=== PATIENT | female | born 1995 | race Two or more races ===

== ENCOUNTER 2019-02-22 12:49 | Emergency (ER) | payer MEDICAID ==
[~2019-02-22] VITALS: Ht 157.5 cm; Wt 87.0 kg
[2019-02-22 12:56] VITALS: BP 116/75
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
[2019-02-22] MEDS ORDERED: FLUORESCEIN OPHTHALMIC 1 MG STRIP ONE (13:11)
[2019-02-22] MEDS ORDERED: FLUORESCEIN OPHTHALMIC 1 MG STRIP EACHEYE ONE (13:30)
== END 2019-02-22 13:39 | disposition home or self-care (01) ==
LOC: ED 13:30
DX: S05.02XA Injury of conjunctiva and corneal abrasion without foreign body, left eye, initial encounter (principal); X58.XXXA Exposure to other specified factors, initial encounter; Y93.89 Activity, other specified; Y92.89 Other specified places as the place of occurrence of the external cause; Y99.8 Other external cause status
CPT/HCPCS: 99283

== ENCOUNTER 2020-05-06 17:44 | Emergency (ER) | payer SELFPAY ==
[~2020-05-06] VITALS: Ht 154.9 cm; Wt 89.7 kg
[2020-05-06 17:49] VITALS: BP 140/86
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
--- NOTE | 2020-05-06 18:08 | NUR ---
PT TO RADIOLOGY VIA SILAS
--- NOTE | 2020-05-06 18:22 | NUR ---
REPORT TO GRAEME BALLESTEROS
[2020-05-06 18:57] LABS: BASOPHILS # (AUTO) 0.08 x10^3/uL (0-0.1); BASOPHILS % (AUTO) 1 % (0-1); EOSINOPHILS # (AUTO) 0.07 x10^3/uL (0-0.4); EOSINOPHILS % (AUTO) 1 % (1-7); LYMPHOCYTES # (AUTO) 1.96 x10^3/uL (1-3.4); LYMPHOCYTES % (AUTO) 18 % (22-44); MD NO; MEAN CORPUSCULAR HEMOGLOBIN 27.3 pg (27.0-34.8); MEAN CORPUSCULAR HGB CONC 32.6 g/dL (32.4-35.8); MEAN CORPUSCULAR VOLUME 83.8 fL (80-100); MEAN PLATELET VOLUME 7.2 fL (7.4-10.4); MONOCYTES # (AUTO) 0.66 x10^3/uL (0.2-0.8); MONOCYTES % (AUTO) 6 % (2-9); NEUTROPHILS # (AUTO) 8.17 x10^3/uL (1.8-6.8); NEUTROPHILS % (AUTO) 75 % (42-75); PLATELET COUNT 329 x10^3/uL (130-400); RED BLOOD COUNT 4.57 x10^6/uL (3.82-5.3); RED CELL DISTRIBUTION WIDTH 12.8 % (9.6-15.2)
[2020-05-06 19:08] LABS: ALBUMIN 3.4 g/dL (3.4-5.0); ANION GAP 5 mmol/L (5-15); CALCIUM 9.1 mg/dL (8.5-10.1); CHLORIDE 109 mmol/L (98-107)
[2020-05-06 19:27] LABS: ALANINE AMINOTRANSFERASE 25 U/L (12-78); ALKALINE PHOSPHATASE 72 U/L (45-117); BILIRUBIN,TOTAL 0.3 mg/dL (0.2-1.0); CREATININE 0.57 mg/dL (0.55-1.02); TOTAL PROTEIN 7.2 g/dL (6.4-8.2)
[2020-05-06 19:28] LABS: MICROSCOPIC NOT IND
== END 2020-05-06 19:51 | disposition home or self-care (01) ==
LOC: ED 19:35
DX: O20.0 Threatened abortion (principal); R10.9 Unspecified abdominal pain; Z88.0 Allergy status to penicillin; Z3A.01 Less than 8 weeks gestation of pregnancy
CPT/HCPCS: 36415; 76801; 80053; 81003; 84702; 85025; 86901; 99284

== ENCOUNTER 2020-05-29 19:47 | Emergency (ER) | payer MEDICAID ==
[~2020-05-29] VITALS: Ht 157.5 cm; Wt 90.4 kg
[2020-05-29 20:22] LABS: BASOPHILS % (AUTO) 1 % (0-1); EOSINOPHILS % (AUTO) 1 % (1-7); LYMPHOCYTES % (AUTO) 14 % (22-44); MEAN CORPUSCULAR HEMOGLOBIN 26.9 pg (27.0-34.8); MEAN CORPUSCULAR HGB CONC 33.2 g/dL (32.4-35.8); MEAN PLATELET VOLUME 7.3 fL (7.4-10.4); MONOCYTES % (AUTO) 7 % (2-9); NEUTROPHILS % (AUTO) 79 % (42-75); PLATELET COUNT 317 x10^3/uL (130-400); RED BLOOD COUNT 4.91 x10^6/uL (3.82-5.3); RED CELL DISTRIBUTION WIDTH 13.9 % (9.6-15.2)
[2020-05-29 20:25] LABS: MD NO
[2020-05-29 20:34] LABS: MICROSCOPIC INDICATED
[2020-05-29 20:35] LABS: ALBUMIN 3.4 g/dL (3.4-5.0); ANION GAP 6 mmol/L (5-15); CALCIUM 9.2 mg/dL (8.5-10.1); CHLORIDE 107 mmol/L (98-107); CREATININE 0.59 mg/dL (0.55-1.02)
--- NOTE | 2020-05-29 20:56 | NUR ---
CODE INSPECTOR: PT AMBULATORY TO ROOM WITH STEADY GAIT FROM LOBYOSSI AT THIS TIME, ACCOMPANIED BY VAMP MARKER
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
[2020-05-29 22:20] VITALS: BP 119/72
== END 2020-05-29 22:22 | disposition home or self-care (01) ==
LOC: ED 21:52
DX: O26.891 Other specified pregnancy related conditions, first trimester (principal); R10.2 Pelvic and perineal pain; R10.32 Left lower quadrant pain; Z3A.10 10 weeks gestation of pregnancy
CPT/HCPCS: 36415; 76801; 80048; 81001; 82040; 84702; 85025; 87086; 99284

== ENCOUNTER 2020-07-04 17:36 | Emergency (ER) | payer MEDICAID ==
[~2020-07-04] VITALS: Ht 160 cm; Wt 90.0 kg
[2020-07-04 17:44] VITALS: BP 125/80
[2020-07-04 18:21] LABS: BASOPHILS % (AUTO) 1 % (0-1); EOSINOPHILS % (AUTO) 1 % (1-7); LYMPHOCYTES % (AUTO) 15 % (22-44); MEAN CORPUSCULAR HGB CONC 33.7 g/dL (32.4-35.8); MEAN PLATELET VOLUME 7.4 fL (7.4-10.4); MONOCYTES % (AUTO) 8 % (2-9); NEUTROPHILS % (AUTO) 77 % (42-75); PLATELET COUNT 308 x10^3/uL (130-400); RED BLOOD COUNT 4.91 x10^6/uL (3.82-5.3); RED CELL DISTRIBUTION WIDTH 15.3 % (9.6-15.2)
[2020-07-04 18:22] LABS: ALANINE AMINOTRANSFERASE 19 U/L (12-78); ALBUMIN 3.3 g/dL (3.4-5.0); ANION GAP 6 mmol/L (5-15); CALCIUM 8.9 mg/dL (8.5-10.1); CHLORIDE 107 mmol/L (98-107); CREATININE 0.53 mg/dL (0.55-1.02)
[2020-07-04 18:26] LABS: MICROSCOPIC INDICATED
[2020-07-04 18:38] LABS: ALKALINE PHOSPHATASE 74 U/L (45-117); BILIRUBIN,TOTAL 0.3 mg/dL (0.2-1.0); TOTAL PROTEIN 7.7 g/dL (6.4-8.2)
[2020-07-04 19:46] LABS: MD NO
== END 2020-07-04 21:32 | disposition home or self-care (01) ==
LOC: ED 21:28
DX: O20.0 Threatened abortion (principal); Z3A.15 15 weeks gestation of pregnancy
CPT/HCPCS: 36415; 76815; 80053; 81001; 84702; 85025; 87086; 99284

== ENCOUNTER 2020-07-15 07:53 | Emergency (ER) | payer MEDICAID ==
[~2020-07-15] VITALS: Ht 157.5 cm; Wt 90.3 kg
--- NOTE | 2020-07-15 08:31 | NUR ---
PT IN ROOM, VSS, STATES 5/10 CHEAST PAIN, 16 WEEKS PREG.
[2020-07-15 08:52] LABS: BASOPHILS % (AUTO) 1 % (0-1); EOSINOPHILS % (AUTO) 0 % (1-7); LYMPHOCYTES % (AUTO) 10 % (22-44); MEAN CORPUSCULAR HEMOGLOBIN 28.5 pg (27.0-34.8); MEAN CORPUSCULAR HGB CONC 34.6 g/dL (32.4-35.8); MEAN PLATELET VOLUME 7.4 fL (7.4-10.4); MONOCYTES % (AUTO) 15 % (2-9); NEUTROPHILS % (AUTO) 75 % (42-75); PLATELET COUNT 268 x10^3/uL (130-400); RED BLOOD COUNT 4.58 x10^6/uL (3.82-5.3); RED CELL DISTRIBUTION WIDTH 15.1 % (9.6-15.2)
[2020-07-15 08:57] LABS: MD NO
[2020-07-15 09:05] LABS: ALBUMIN 3.1 g/dL (3.4-5.0); ANION GAP 9 mmol/L (5-15); CALCIUM 8.9 mg/dL (8.5-10.1); CHLORIDE 110 mmol/L (98-107)
[2020-07-15 09:11] LABS: ALANINE AMINOTRANSFERASE 24 U/L (12-78); ALKALINE PHOSPHATASE 66 U/L (45-117); BILIRUBIN,TOTAL 0.5 mg/dL (0.2-1.0); CREATININE 0.47 mg/dL (0.55-1.02); TOTAL PROTEIN 7.2 g/dL (6.4-8.2); TROPONIN I < 0.015 ng/mL (0.000-0.045)
--- NOTE | 2020-07-15 09:30 | NUR ---
us done at , hr 160,
[2020-07-15] MEDS ORDERED: ACETAMINOPHEN 325 MG TABLET PO ONE (10:30)
[2020-07-15] MEDS ORDERED: ACETAMINOPHEN 325 MG TABLET ONE (10:50)
--- NOTE | 2020-07-15 11:11 | NUR ---
pt in bed no change, admin tylenol for CASTELLANOS
--- NOTE | 2020-07-15 12:01 | NUR ---
pt in bed no distress, CASTELLANOS resolved, no CP, no distress
[2020-07-15 12:43] VITALS: BP 125/68
== END 2020-07-15 12:50 | disposition home or self-care (01) ==
LOC: ED 09:41
DX: O26.892 Other specified pregnancy related conditions, second trimester (principal); R07.2 Precordial pain; R94.31 Abnormal electrocardiogram [ECG] [EKG]; Z3A.16 16 weeks gestation of pregnancy; Z88.0 Allergy status to penicillin
CPT/HCPCS: 36415; 80053; 84484; 85025; 85379; 93005; 99285

== ENCOUNTER 2020-08-14 23:29 | Outpatient (CLI) | payer MEDICAID ==
[~2020-08-14] VITALS: Ht 157.5 cm; Wt 90.0 kg
[2020-08-15 00:04] VITALS: BP 116/68
[2020-08-15 00:35] LABS: MICROSCOPIC INDICATED
== END 2020-08-14 23:59 | disposition home or self-care (01) ==
LOC: LDOP 23:29
PROVIDERS: ATTEND Obstetrics & Gynecology
DX: O32.1XX0 Maternal care for breech presentation, not applicable or unspecified (principal); O26.892 Other specified pregnancy related conditions, second trimester; R25.2 Cramp and spasm; Z3A.22 22 weeks gestation of pregnancy
CPT/HCPCS: 59025; 76817; 81001; 87086; 99201; G0463

== ENCOUNTER 2020-09-10 20:42 | Outpatient (CLI) | payer MEDICAID ==
[~2020-09-10] VITALS: Ht 157.5 cm; Wt 94.0 kg
[2020-09-10 21:07] VITALS: BP 101/60
[2020-09-10 21:16] LABS: MICROSCOPIC INDICATED
== END 2020-09-10 21:45 | disposition home or self-care (01) ==
LOC: LDOP 20:42
PROVIDERS: ATTEND Obstetrics & Gynecology
DX: O26.899 Other specified pregnancy related conditions, unspecified trimester (principal); R10.9 Unspecified abdominal pain; Z3A.00 Weeks of gestation of pregnancy not specified
CPT/HCPCS: 81001; 87086; 99211; G0463

== ENCOUNTER 2020-10-08 15:19 | Outpatient (CLI) | payer MEDICAID ==
[~2020-10-08] VITALS: Ht 157.5 cm; Wt 94.5 kg
[2020-10-08 15:28] VITALS: BP 98/57
[2020-10-08 15:49] LABS: MICROSCOPIC INDICATED
[2020-10-08] MEDS ORDERED: NITROFURANTOIN (MACROBID) 100 MG CAPSULE PO STA (15:57)
[2020-10-08] MEDS ORDERED: NITROFURANTOIN (MACROBID) 100 MG CAPSULE ONE (16:14)
[2020-10-08 16:21] LABS: BASOPHILS % (AUTO) 1 % (0-1); EOSINOPHILS % (AUTO) 1 % (1-7); LYMPHOCYTES % (AUTO) 14 % (22-44); MEAN CORPUSCULAR HEMOGLOBIN 28.6 pg (27.0-34.8); MEAN CORPUSCULAR HGB CONC 34.5 g/dL (32.4-35.8); MEAN PLATELET VOLUME 7.3 fL (7.4-10.4); MONOCYTES % (AUTO) 8 % (2-9); NEUTROPHILS % (AUTO) 77 % (42-75); PLATELET COUNT 292 x10^3/uL (130-400); RED BLOOD COUNT 4.44 x10^6/uL (3.82-5.3); RED CELL DISTRIBUTION WIDTH 13.6 % (9.6-15.2)
[2020-10-08 16:22] LABS: MD NO
== END 2020-10-08 17:18 | disposition home or self-care (01) ==
LOC: LDOP 15:19
PROVIDERS: ATTEND Obstetrics & Gynecology
DX: O26.893 Other specified pregnancy related conditions, third trimester (principal); R10.9 Unspecified abdominal pain; Z3A.29 29 weeks gestation of pregnancy
CPT/HCPCS: 59025; 81001; 85025; 87086

== ENCOUNTER 2020-11-25 18:16 | Outpatient (CLI) | payer MEDICAID ==
[~2020-11-25] VITALS: Ht 154.9 cm; Wt 100.0 kg
[2020-11-25 18:54] LABS: MICROSCOPIC INDICATED
== END 2020-11-25 20:10 | disposition home or self-care (01) ==
LOC: LDOP 18:16
PROVIDERS: ATTEND Obstetrics & Gynecology
DX: O26.893 Other specified pregnancy related conditions, third trimester (principal); R10.9 Unspecified abdominal pain; Z3A.35 35 weeks gestation of pregnancy
CPT/HCPCS: 59025; 81001; 87086

== ENCOUNTER 2021-01-01 23:39 | Emergency (ER) | payer MEDICAID ==
[~2021-01-01] VITALS: Ht 157.5 cm; Wt 88.3 kg
[2021-01-01] MEDS ORDERED: ACETAMINOPHEN 500 MG TABLET ONE (23:56)
[2021-01-02] MEDS ORDERED: ACETAMINOPHEN 500 MG TABLET PO ONE
[2021-01-02] MEDS ORDERED: SODIUM CHLORIDE FLUSH 10ML SYR IVF ONE
[2021-01-02] MEDS ORDERED: SODIUM CHLORIDE 0.9% 1,000ML IVBOLUS ONE
--- NOTE | 2021-01-02 00:04 | NUR ---
RICE DRIER OPERATOR: PT. TO ROOM FORM LOBBY AT THIS TIME.
--- NOTE | 2021-01-02 00:17 | NUR ---
assessment made. seen by ERP. slab miller operator at bedside.
[2021-01-02] MEDS ORDERED: KETOROLAC 30 MG/1 ML IM ONE (00:30)
[2021-01-02 00:37] LABS: BASOPHILS % (AUTO) 1 % (0-1); EOSINOPHILS % (AUTO) 4 % (1-7); LYMPHOCYTES % (AUTO) 10 % (22-44); MD NO; MEAN CORPUSCULAR HEMOGLOBIN 25.3 pg (27.0-34.8); MEAN CORPUSCULAR HGB CONC 32.9 g/dL (32.4-35.8); MEAN PLATELET VOLUME 7.3 fL (7.4-10.4); MONOCYTES % (AUTO) 8 % (2-9); NEUTROPHILS % (AUTO) 78 % (42-75); PLATELET COUNT 400 x10^3/uL (130-400); RED BLOOD COUNT 4.49 x10^6/uL (3.82-5.3); RED CELL DISTRIBUTION WIDTH 15.4 % (9.6-15.2)
[2021-01-02 00:42] LABS: ALANINE AMINOTRANSFERASE 26 U/L (12-78); ALBUMIN 3.1 g/dL (3.4-5.0); ANION GAP 7 mmol/L (5-15); CALCIUM 8.4 mg/dL (8.5-10.1); CHLORIDE 110 mmol/L (98-107)
[2021-01-02 00:44] LABS: ALKALINE PHOSPHATASE 145 U/L (45-117); BILIRUBIN,TOTAL 0.4 mg/dL (0.2-1.0); TOTAL PROTEIN 7.4 g/dL (6.4-8.2)
[2021-01-02] MEDS ORDERED: SULFAMETH./TRIMETHOPRIM DS 800MG/160MG TABLET ONE (01:50)
[2021-01-02] MEDS ORDERED: KETOROLAC 30 MG/1 ML ONE (01:50)
[2021-01-02] MEDS ORDERED: SULFAMETH./TRIMETHOPRIM DS 800MG/160MG TABLET PO ONE (02:00)
[2021-01-02 02:55] VITALS: BP 119/76
--- NOTE | 2021-01-02 02:55 | NUR ---
re-evaluation done. patient discharged with prescription and instruction. verbalized undertanding.
== END 2021-01-02 02:57 | disposition home or self-care (01) ==
LOC: ED 01-02 01:19
DX: N61.0 Mastitis without abscess (principal); R51.9 Headache, unspecified; R50.9 Fever, unspecified; R00.0 Tachycardia, unspecified
CPT/HCPCS: 36415; 76642; 80053; 83605; 84145; 85025; 93005; 96372; 99285; J1885; 99284

== ENCOUNTER 2021-02-02 20:40 | Emergency (ER) | payer MEDICAID ==
[~2021-02-02] VITALS: Ht 157.5 cm; Wt 91.3 kg
[2021-02-02] MEDS ORDERED: LIDOCAINE-MPF 1%, 5ML INFIL ONE (21:00)
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
[2021-02-02] MEDS ORDERED: CLINDAMYCIN 300 MG CAPSULE PO ONE (23:30)
[2021-02-02] MEDS ORDERED: CLINDAMYCIN 300 MG CAPSULE ONE (23:34)
[2021-02-02] MEDS ORDERED: LIDOCAINE-MPF 1%, 2ML ONE (23:41)
--- NOTE | 2021-02-02 23:55 | NUR ---
PT.'S FOOT IS SOAKING. PT. WAS MEDICATED ORDERED. LIDOCAINE IS AT THE BEDSIDE.
[2021-02-03] MEDS ORDERED: LIDOCAINE-MPF 1%, 2ML ONE (00:33)
[2021-02-03 00:36] VITALS: BP 122/80
--- NOTE | 2021-02-03 00:37 | NUR ---
DR. CIFUENTES AT THE BEDSIDE NUMBING THE PT.'S TOE.
[2021-02-03] MEDS ORDERED: BACITRACIN ZINC OINT 500U/GM, 0.9 GM ONE (00:45)
== END 2021-02-03 01:42 | disposition home or self-care (01) ==
LOC: ED 21:41
DX: L03.031 Cellulitis of right toe (principal); L60.0 Ingrowing nail; Z88.0 Allergy status to penicillin
CPT/HCPCS: 10061; 11730; 99284

== ENCOUNTER 2021-05-21 17:33 | Emergency (ER) | payer MEDICAID ==
--- NOTE | 2021-05-21 18:10 | NUR ---
pt left without being seen
== END 2021-05-21 18:11 | disposition left against medical advice (07) ==
LOC: ED 17:38
DX: L60.0 Ingrowing nail (principal); Z53.21 Procedure and treatment not carried out due to patient leaving prior to being seen by health care provider

== ENCOUNTER 2021-05-21 18:35 | Emergency (ER) | payer MEDICAID ==
[~2021-05-21] VITALS: Ht 154.9 cm; Wt 90.6 kg
[2021-05-21] MEDS ORDERED: LIDOCAINE-MPF 1%, 5ML INFIL ONE (19:00)
--- NOTE | 2021-05-21 19:52 | NUR ---
WARNING ANALYST: PT. TO ROOM FROM LOBBY AT THIS TIME.
[2021-05-21 20:05] VITALS: BP 122/77
--- NOTE | 2021-05-21 20:05 | NUR ---
PT SITTING ON KELLY ROSEN AT BEDSIDE TO ASSESS PT. PT WILL LIKELY GET ABX AND DC.
== END 2021-05-21 20:36 | disposition home or self-care (01) ==
LOC: ED 20:20
DX: L60.0 Ingrowing nail (principal)
CPT/HCPCS: 99283